=== PATIENT | female | born 1995 | race Caucasian/White ===

== ENCOUNTER 2020-12-03 09:38 | Inpatient (IN) ==
[2020-12-03] MEDS ORDERED: miSOPROStoL 25 MCG TABLET VG PRN (10:26)
[2020-12-03] MEDS ORDERED: Naloxone 0.4 MG/ML INJ IVP PRN ×2 (10:41→14:31)
[2020-12-03] MEDS ORDERED: Ondansetron 4 MG/2 ML VIAL IVP PRN ×2 (10:41→14:31)
[2020-12-03] MEDS ORDERED: Famotidine 20 MG/2 ML VIAL IVP PRN (10:41)
[2020-12-03] MEDS ORDERED: Metoclopramide 10 MG/2 ML VIAL IVP PRN (10:41)
[2020-12-03 12:16] LABS: Basophils % 0.3 %; Eosinophils # 0.1 K/mcL (0.0-0.6); Eosinophils % 0.5 %; Hematocrit 37.8 % (35.3-44.9); Hemoglobin 12.3 g/dL (11.5-15.4); Immature Granulocytes % 0.9 % (0-4); Lymphocytes % 17.4 %; Mean Corpuscular HGB Conc 32.5 g/dL (31.6-35.5); Mean Corpuscular Hemoglobin 28.8 pg (28.0-33.3); Mean Corpuscular Volume 88.5 fL (83.0-100.0); Mean Platelet Volume 10.2 fL (9.4-12.4); Monocytes # 0.7 K/mcL (0.0-1.3); Monocytes % 6.4 %; Neutrophils # 8.6 K/mcL (1.6-8.9); Platelet Count 304 K/mcL (140-400); Red Blood Count 4.27 M/mcL (3.82-4.97); Red Cell Distribution Width 12.9 % (11.5-14.5); Segmented Neutrophils % 74.5 %; White Blood Count 11.5 K/mcL (4.3-11.1)
[2020-12-03 12:24] LABS: Amphetamine Screen,Urine Negative ng/mL (Cutoff=1000); Barbiturate Screen,Urine Negative ng/mL (Cutoff=200); Benzodiazepines Screen,Urine Negative ng/mL (Cutoff=200); Cannabinoid Screen,Urine Negative ng/mL (Cutoff = 50); Cocaine Screen,Urine Negative ng/mL (Cutoff= 300); Opiate Screen,Urine Negative ng/mL (Cutoff=300); Phencyclidine Screen,Urine Negative ng/mL (Cutoff=25)
[2020-12-03] MEDS ORDERED: Ringers Solution, Lactated 1,000 ML ONE ×2 (13:15→14:11)
[2020-12-03] MEDS ORDERED: Oxytocin 20 units/ LR 1000 mL 20 UNIT/1,000 ML BAG IVC ONE (13:16)
[2020-12-03] MEDS: D5% in Lactated Ringers 1,000 ML IVC SCH ×2 (13:38→23:24)
[2020-12-03] MEDS: Vancomycin 1,500 MG/265 ML IV.SOLN IVPB SCH ×2 (13:40→20:52)
[2020-12-03] MEDS ORDERED: Ropivacaine/PF 0.2% 20 ML VIAL ONE (14:22)
[2020-12-03] MEDS ORDERED: Ropivacaine/PF 0.2% 20 ML VIAL EP ONE (14:31)
[2020-12-03] MEDS ORDERED: EPHEDrine 50 MG/ML VIAL IVP PRN (14:31)
[2020-12-03] MEDS ORDERED: Epidural Premix (fent/bupiv) 110 ML EP ONE (14:35)
[2020-12-03] MEDS ORDERED: Epidural Premix (fent/bupiv) 110 ML EP SCH (14:45)
[2020-12-03] MEDS ORDERED: Vancomycin (wt based) 1,000 MG VIAL IV SCH (16:00)
[2020-12-03 17:55] LABS: eGFR For African Americans > 60 (> 60); eGFR For Non-African Americans > 60 (> 60)
[2020-12-03 20:30] LABS: Adenovirus Not Detected (Not Detect); Bordetella Pertussis Not Detected (Not Detect); Chlamydophila pneumoniae Not Detected (Not Detect); Coronavirus 229E Not Detected (Not Detect); Coronavirus HKU1 Not Detected (Not Detect); Coronavirus NL63 Not Detected (Not Detect); Coronavirus OC43 Not Detected (Not Detect); Human Metapneumovirus Not Detected (Not Detect); Human Rhinovirus/Enterovirus Not Detected (Not Detect); Influenza A Subtype 2009 H1 Not Detected (Not Detect); Influenza B Not Detected (Not Detect); Mycoplasma pneumoniae Not Detected (Not Detect); Parainfluenza Virus 1 Not Detected (Not Detect); Parainfluenza Virus 2 Not Detected (Not Detect); Parainfluenza Virus 3 Not Detected (Not Detect); Parainfluenza Virus 4 Not Detected (Not Detect); Respiratory Syncytial Virus Not Detected (Not Detect); SARS-CoV-2 Not Detected (Not Detect)
[2020-12-04] MEDS ORDERED: Gentamicin 310 MG in 0.9 % Sodium Chloride 100 ML IVPB STA (01:47)
[2020-12-04] MEDS ORDERED: Ringers Solution, Lactated 1,000 ML ONE (01:50)
[2020-12-04] MEDS ORDERED: Lidocaine 1% 20 ML MDV ONE (02:43)
[2020-12-04] MEDS ORDERED: Oxytocin 20 units/ LR 1000 mL 20 UNIT/1,000 ML BAG IVC ONE (05:51)
[2020-12-04] MEDS ORDERED: Oxytocin 20 units/ LR 1000 mL 20 UNIT/1,000 ML BAG IVC SCH (06:33)
[2020-12-04] MEDS ORDERED: Benzocaine/Menthol 56 GM AEROSOL SPRAY TP PRN (06:33)
[2020-12-04] MEDS ORDERED: *HR* HYDROcodone/Acet 5/325 mg TABLET PO PRN (06:33)
[2020-12-04] MEDS ORDERED: Lanolin 7 G OINT...G. TP PRN (06:33)
[2020-12-04] MEDS: Prenatal Vit/FA 1 EACH TABLET PO SCH (07:40)
[2020-12-04] MEDS: Acetaminophen 325 MG TABLET PO PRN ×3 (07:41→17:39)
[2020-12-04] MEDS: Ibuprofen 600 MG TABLET PO PRN ×3 (07:41→17:38)
[2020-12-05] MEDS: Ibuprofen 600 MG TABLET PO PRN (03:25)
[2020-12-05 03:32] LABS: Basophils # 0.1 K/mcL (0.0-0.2); Basophils % 0.5 %; Eosinophils # 0.2 K/mcL (0.0-0.6); Eosinophils % 1.3 %; Hematocrit 32.9 % (35.3-44.9); Hemoglobin 10.8 g/dL (11.5-15.4); Immature Granulocytes % 0.6 % (0-4); Lymphocytes # 3.1 K/mcL (0.6-4.6); Lymphocytes % 24.7 %; Mean Corpuscular HGB Conc 32.8 g/dL (31.6-35.5); Mean Corpuscular Hemoglobin 29.4 pg (28.0-33.3); Mean Corpuscular Volume 89.6 fL (83.0-100.0); Mean Platelet Volume 10.1 fL (9.4-12.4); Monocytes # 0.9 K/mcL (0.0-1.3); Monocytes % 6.7 %; Neutrophils # 8.4 K/mcL (1.6-8.9); Platelet Count 237 K/mcL (140-400); Red Blood Count 3.67 M/mcL (3.82-4.97); Red Cell Distribution Width 13.2 % (11.5-14.5); Segmented Neutrophils % 66.2 %; White Blood Count 12.7 K/mcL (4.3-11.1)
[2020-12-05 07:55] VITALS: BP 101/64
[2020-12-05] MEDS: Prenatal Vit/FA 1 EACH TABLET PO SCH (08:13)
== END 2020-12-05 13:30 | disposition home or self-care (01) | DRG 807 ==
LOC: 1NENULAB 09:38 → 1NENUOBS 12-04 06:35
PROVIDERS: ADMIT Obstetrics & Gynecology; ATTEND Obstetrics & Gynecology

== ENCOUNTER → 2022-04-27 12:50 | Observation (INO) ==
[2022-04-27 12:31] LABS: Bacteria,Urine Moderate per hpf (None-Few); Bilirubin,Urine Negative (Negative); Blood,Urine Negative (Negative); Clarity,Urine Ex.Turbid (Clear); Color,Urine Yellow (Yellow); Glucose,Urine (UA) Normal (Normal); Ketones,Urine Trace mg/dL (Negative); Leukocyte Esterase,Urine Large (Negative); Mucus,Urine Few per lpf (None-Few); Nitrite,Urine Negative (Negative); Protein,Urine 50 mg/dL (Neg-Trace); Specific Gravity,Urine 1.023 (1.010-1.025); Squamous Epithelial Cell,Urine Many per hpf (None-Few); Urobilinogen,Urine Normal (Normal); WBC,Urine 30-50 per hpf (0-3)
[~2022-04-27 12:50] MED LIST: EPHEDrine sulfate 50 MG/10 ML VIAL IVP PRN; Epidural Premix (fent/bupiv) 110 ML EP SCH
== END | disposition home or self-care (01) ==
LOC: 1NENULAB
PROVIDERS: ADMIT Advanced Practice Midwife; ATTEND Advanced Practice Midwife

== ENCOUNTER 2022-05-05 06:20 | Inpatient (IN) ==
[2022-05-05] MEDS ORDERED: EPHEDrine sulfate 50 MG/10 ML VIAL IVP PRN (07:22)
[2022-05-05] MEDS ORDERED: Famotidine 20 MG/2 ML VIAL IVP PRN (07:24)
[2022-05-05] MEDS ORDERED: Metoclopramide 10 MG/2 ML VIAL IVP PRN (07:24)
[2022-05-05] MEDS ORDERED: Naloxone 0.4 MG/ML INJ IVP PRN (07:24)
[2022-05-05] MEDS ORDERED: *HR* Nalbuphine 10 MG/ML AMPUL IV PRN (07:24)
[2022-05-05] MEDS ORDERED: Lidocaine 1% 20 ML MDV INFILT ONE (07:27)
[2022-05-05] MEDS ORDERED: Ondansetron 4 MG/2 ML VIAL IVP PRN (07:27)
[2022-05-05] MEDS ORDERED: Oxytocin 30 UNIT/503 ML BAG IVC SCH ×2 (07:30→18:17)
[2022-05-05] MEDS ORDERED: Ringers Solution, Lactated 1,000 ML IVC SCH (07:30)
[2022-05-05] MEDS ORDERED: Epidural Premix (fent/bupiv) 110 ML EP SCH (07:30)
[2022-05-05] MEDS ORDERED: Clindamycin 900 MG/50 ML 900 MG/50 ML IV.SOLN IVPB SCH (07:30)
[2022-05-05] MEDS ORDERED: *HR* Norepinephrine 4 MG/4 ML VIAL IVC ONE (08:03)
[2022-05-05] MEDS ORDERED: Ondansetron 4 MG/2 ML VIAL ONE (08:03)
[2022-05-05 08:39] LABS: Basophils % 0.4 %; Eosinophils # 0.1 K/mcL (0.0-0.6); Eosinophils % 0.7 %; Hemoglobin 10.1 g/dL (11.5-15.4); Lymphocytes # 2.3 K/mcL (0.6-4.6); Lymphocytes % 20.8 %; Mean Corpuscular HGB Conc 31.6 g/dL (31.6-35.5); Mean Corpuscular Hemoglobin 24.5 pg (28.0-33.3); Mean Corpuscular Volume 77.5 fL (83.0-100.0); Mean Platelet Volume 10.5 fL (9.4-12.4); Monocytes # 0.7 K/mcL (0.0-1.3); Monocytes % 6.6 %; Neutrophils # 7.6 K/mcL (1.6-8.9); Platelet Count 311 K/mcL (140-400); Red Blood Count 4.13 M/mcL (3.82-4.97); Red Cell Distribution Width 14.3 % (11.5-14.5); Segmented Neutrophils % 70.5 %; White Blood Count 10.8 K/mcL (4.3-11.1)
[2022-05-05] MEDS ORDERED: Lactobacillus 1 EACH CAP.SPRINK PO SCH (09:45)
[2022-05-05 10:21] LABS: Amphetamine Screen,Urine Negative ng/mL (Cutoff=1000); Barbiturate Screen,Urine Negative ng/mL (Cutoff=200); Benzodiazepines Screen,Urine Negative ng/mL (Cutoff=200); Cannabinoid Screen,Urine Negative ng/mL (Cutoff = 50); Cocaine Screen,Urine Negative ng/mL (Cutoff= 300); Opiate Screen,Urine Negative ng/mL (Cutoff=300); Phencyclidine Screen,Urine Negative ng/mL (Cutoff=25)
[2022-05-05] MEDS ORDERED: Azithromycin 500 MG in 0.9 % Sodium Chloride 250 ML IVPB ONE (12:44)
[2022-05-05] MEDS ORDERED: Lidocaine -MPF 1% 5 ML AMPUL ONE (15:36)
[2022-05-05] MEDS ORDERED: Lanolin 7 G OINT...G. TP PRN (18:17)
[2022-05-05] MEDS ORDERED: OXYTOCIN/RINGERS LACTATE 10 UNIT/166.6 ML BAG IVC ONE (18:17)
[2022-05-05] MEDS ORDERED: Ondansetron ODT 4 MG TAB.RAPDIS SL PRN (18:17)
[2022-05-05] MEDS ORDERED: Benzocaine/Menthol 56 GM AEROSOL SPRAY TP PRN (18:17)
[2022-05-05] MEDS ORDERED: Measles/Mumps/Rubella Vacc 0.5 ML VIAL SQ PRN (18:17)
[2022-05-05] MEDS ORDERED: Rho Immune Globulin 1,500 UNIT SYRINGE IM PRN (18:17)
[2022-05-05] MEDS: Ibuprofen 600 MG TABLET PO SCH (19:53)
[2022-05-05] MEDS: Acetaminophen 325 MG TABLET PO SCH (22:30)
[2022-05-06] MEDS: Ibuprofen 600 MG TABLET PO SCH (04:05)
[2022-05-06] MEDS: Acetaminophen 325 MG TABLET PO SCH (04:23)
[2022-05-06 04:40] VITALS: PULSE 62; O2SAT 100
[2022-05-06 07:37] VITALS: BP 113/66; TEMP 97.8
[2022-05-06] MEDS ORDERED: Prenatal Vit/FA 1 EACH TABLET PO SCH (09:00)
== END 2022-05-06 18:30 | disposition home or self-care (01) | DRG 807 ==
LOC: 1NENULAB 06:20 → 1NENUOBS 18:07
PROVIDERS: ADMIT Obstetrics & Gynecology; ATTEND Obstetrics & Gynecology